=== PATIENT | male | born 1995 | race Caucasian/White ===

== ENCOUNTER 2019-12-24 17:23 | Emergency (ER) | payer OTHER ==
[2019-12-24 17:32] VITALS: BP 151/71
--- NOTE | 2019-12-24 17:42 | ED Physician Documentation ---
History of Present Illness - Stated complaint Stated Complaint: RT LOWER LEG NUMBNESS - Chief complaint Chief Complaint: Ext Problem - History obtained from History obtained from: Patient - History of Present Illness Timing: How many days ago (5) Pain level max: 5 Pain level now: 3 - Additonal information Additional information: 24-year-old male is in the [employer] and states that he has been sitting on the floor, against a wall, on a concrete floor for the past 5 days, noted numbness and tingling to the right leg since then. Has now having difficulty walking secondary to numbness. Took Motrin without relief. No loss of bowel or bladder control. Is having pain to the right lower back as well. No fall. No trauma. No fevers. No IV drug use. Review of Systems Ten Systems: 10 systems reviewed and negative Constitutional: denies: Fever, Chills Throat: denies: Sore throat Cardiac: denies: Chest pain / pressure Respiratory: denies: Cough GI: denies: Abdominal Pain, Nausea, Vomiting, Diarrhea Skin: denies: Rash Musculoskeletal: denies: Neck pain, Back pain Neurologic: denies: Headache PD PAST MEDICAL HISTORY - Past Medical History Past Medical History: No - Past Surgical History Past Surgical History: No - Present Medications Home Medications: Ambulatory Orders Medication Instructions Recorded Confirmed Ibuprofen [Motrin] 800 mg PO Q8H PRN #30 tablet 12/24/19 Methylprednisolone [Medrol] 4 mg PO DAILY #1 tab.ds.pk 12/24/19 - Allergies Allergies/Adverse Reactions: Allergies Allergy/AdvReac Type Severity Reaction Status Date / Time No Known Drug Allergies Allergy Verified 12/24/19 17:26 - Living Situation Living Situation: reports: With family Living Arrangement: reports: At home - Social History Does the pt smoke?: No Does the pt drink ETOH?: No Does the pt have substance abuse?: No - Family History Family history: reports: Non contributory PD ED PE NORMAL - Vitals Vital signs reviewed: Yes - General General: Alert and oriented X 3, No acute distress - HEENT HEENT: Moist mucous membranes - Neck Neck: Supple, no meningeal sign, No bony TTP - Cardiac Cardiac: RRR - Respiratory Respiratory: No respiratory distress, Clear bilaterally - Abdomen Abdomen: Soft, Non tender, Non distended - Back Back: No spinal TTP (No midline tenderness to palpation or percussion. Tender to palpation over the right SI joint.), Other (Normal bilateral lower extremity patellar and ankle jerk reflexes. Normal great toe extension bilaterally. no saddle anesthesia) - Extremities Extremities: Other (Decreased sensation over the foot and lower leg. Decreased ability to plantar and dorsiflex the foot. 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 We will trial him on a steroid taper. We will have him follow-up with his doctor for further care. Patient is well-appearing, nontoxic. Afebrile. No evidence of epidural abscess, fracture, cauda equina. Patient counseled regarding signs and symptoms for which I believe and urgent re-evaluation would be necessary. Patient with good understanding of and agreement to plan and is comfortable going home at this time This document was made in part using voice recognition software. While efforts are made to proofread this document, sound alike and grammatical errors may occur. MRI is not available here tonight, if he fails to improve as expected, would consider MRI. Departure - Departure Disposition: 01 Home, Self Care Clinical Impression: Foot drop, right foot Sciatica Qualifiers: Laterality: right Qualified Code(s): M54.31 - Sciatica, right side Condition: Good Instructions: ED Sciatica Follow-Up: MITRA IVORY MD [Primary Care Provider] - Within 3 Days Prescriptions: Methylprednisolone [Medrol] 4 mg PO DAILY #1 tab.ds.pk Ibuprofen [Motrin] 800 mg PO Q8H PRN #30 tablet PRN Reason: PAIN &/OR FEVER Comments: This is likely due to compression on your sciatic nerve, this should improve as the swelling decreases, you may need physical therapy and an MRI. This can be ordered by your doctor. Return if you worsen. Return for any loss of bowel or bladder control.
[2019-12-24] MEDS ORDERED: DEXAMETHASONE 10 MG/ML VIAL PO STA (18:02)
[2019-12-24] MEDS ORDERED: KETOROLAC 60 MG/2 ML VIAL IM STA (18:02)
== END 2019-12-24 18:25 | disposition home or self-care (01) ==
LOC: ED 17:23
DX: M54.31 Sciatica, right side (principal); M21.371 Foot drop, right foot; X50.1XXA Overexertion from prolonged static or awkward postures, initial encounter; Y93.89 Activity, other specified; Y92.139 Unspecified place military base as the place of occurrence of the external cause; Y99.1 Military activity
CPT/HCPCS: 96372; 99283; 99284

== ENCOUNTER 2020-02-11 15:41 | Outpatient (CLI) | payer OTHER ==
--- NOTE | 2020-02-13 10:07 | MRI Report ---
PROCEDURE: Ankle RT W/O INDICATIONS: FOOT DROP, RIGHT FOOT TECHNIQUE: Noncontrast sagittal T1 spin echo and T2 fast spin echo with fat saturation, axial proton density fas t spin echo and T2 fast spin echo with fat saturation, coronal T1 spin echo and T2 fast spin echo wit h fat saturation through the ankle/hindfoot. COMPARISON: None. FINDINGS: Image quality: Excellent. Bones and joints: No bone marrow contusions or fractures. No hindfoot coalitions. No osteochondral injuries of the talar dome. No pathologic joint effusions. Medial structures: The posterior tibialis, flexor digitorum longus, and flexor hallucis longus tendo ns are intact. The posterior tibial neurovascular bundle appears normal within the tarsal tunnel, wi thout extrinsic mass effect. The deltoid and spring ligaments appear intact. Lateral structures: The anterior talofibular, calcaneofibular, and posterior talofibular ligaments a ppear intact. More superiorly, the anterior and posterior tibiofibular ligaments appear normal, as i s the intermalleolar ligament. The tibiofibular syndesmosis is normal in width at 2 mm or less. The peroneus longus and brevis tendons demonstrate normal location and morphology. Adjacent bony perone al tubercle and retrotrochlear prominence are normal in size. The sinus tarsi demonstrates normal fa tty signal, without edema, fibrosis, or cyst formation. Anterior structures: The tibialis anterior, extensor hallucis longus, and extensor digitorum longus tendons appear intact. The dorsal talonavicular ligament appears intact. Posterior and plantar structures: Achilles tendon is intact. Medial and lateral bands of the planta r fascia are of normal thickness. No abductor digiti quinti muscle atrophy to suggest Finch neuropa thy. IMPRESSION: 1. No definite acute internal derangement. 2. No muscle edema or fatty atrophy to suggest denervation changes by imaging. Reviewed by: Ovi Perez MD on 02/13/2020 9:06 AM [facility] Approved by: Ovi Perez MD on 02/13/2020 9:06 AM [facility] Station ID: [id number]
== END 2020-02-11 15:42 | disposition home or self-care (01) ==
LOC: DI 15:41
DX: M21.371 Foot drop, right foot (principal)

== ENCOUNTER 2020-02-17 08:25 | Outpatient (CLI) | payer OTHER ==
--- NOTE | 2020-02-17 10:25 | MRI Report ---
PROCEDURE: Knee RT W/O INDICATIONS: RIGHT FOOT DROP TECHNIQUE: Noncontrast sagittal PD fast spin echo and T2 fast spin echo with fat saturation, sagittal 3-D spoile d GE with fat saturation; coronal T1 spin echo and PD fast spin echo with fat saturation, and axial P D fast spin echo with fat saturation through the knee. COMPARISON: None. FINDINGS: Image quality: Excellent. Menisci: The medial and lateral menisci are intact. There is no meniscal extrusion. Cruciate ligaments: The anterior and posterior cruciate ligaments appear intact. Medial structures: The medial collateral ligament appears intact. The semimembranosus tendon insert ions appear intact. Visualized portions of the pes anserinus tendons appear normal. Lateral structures: The lateral collateral ligament, long and short heads of the biceps femoris tend on appear intact. The popliteus tendon appears intact. Iliotibial band appears normal. Anterior structures: The quadriceps and patellar tendons appear intact. Patellar alignment is garett l. No femoral trochlear dysplasia or ventral trochlear prominence. No edema in the infrapatellar fa t pad. Bones and cartilage: No bone marrow contusion or acute fracture. The cartilage of the medial and la teral femorotibial compartments appears normal in thickness. Deep cartilage fissuring is seen in the lateral facet of the patella with focal subchondral cystic changes. Joint space and soft tissues: There is a physiologic amount of joint fluid. There is a trace medial popliteal cyst. The included portion of the common peroneal nerve appears normal without definite co mpression at the level of the fibular head. IMPRESSION: 1. No acute trabecular bone injury. The cruciate and collateral ligaments are intact. There is no me niscal tear. 2. No mass or compression is seen along the course of the common peroneal nerve. 3. Focal deep cartilage fissuring in the lateral facet of the patella with subchondral cystic change s. Reviewed by: Silviano Forman MD on 02/17/2020 10:23 AM PDT Approved by: Silviano Forman MD on 02/17/2020 10:23 AM PDT Station ID: [id number]
--- NOTE | 2020-02-17 10:34 | MRI Report ---
PROCEDURE: Hip RT W/O INDICATIONS: RIGHT FOOT DROP TECHNIQUE: Noncontrast coronal T1 spin echo and STIR through the bony pelvis. Coronal and axial T2 fast spin ec ho with fat saturation, sagittal T1 spin echo, and oblique axial T2 fast spin echo with fat saturatio n through the hip. COMPARISON: None. FINDINGS: Image quality: Excellent. Bones and joints: Bone marrow of the pelvic ring and proximal femurs show normal signal throughout. No intraosseous lesions or fractures. No avascular necrosis of the femoral heads. The visualized l ower lumbar spine appears normally aligned. Tendons: The gluteus medius and minimus tendons appear intact, without associated muscle atrophy. T he iliopsoas tendon appears intact, without adjacent bursal fluid collections. The origin of the ham string tendon is intact at the ischial tuberosity. Labrum and cartilage: The acetabular labrum appears intact in the absence of intra-articular contras t. Cartilage surface of the femoral head appears of normal thickness. The alpha angle of the femur is within normal limits at less than 55 degrees. Soft tissues: Visualized muscles demonstrate normal bulk and internal signal. The piriformis muscle s are symmetric. The proximal sciatic neurovascular bundle appears normal adjacent to the hamstring t endons. No free pelvic fluid. Bladder wall thickness is normal. Genitourinary structures and bowel loops appear normal where visualized. IMPRESSION: 1. No acute trabecular bone injury. The right hip articular cartilage and labrum appear normal. 2. No mass or compressive lesion is seen along the included portion of the proximal sacral nerve. Reviewed by: Silviano Forman MD on 02/17/2020 10:32 AM PDT Approved by: Silviano Forman MD on 02/17/2020 10:32 AM PDT Station ID: [id number]
== END 2020-02-17 08:26 | disposition home or self-care (01) ==
LOC: DI 08:25
DX: M21.371 Foot drop, right foot (principal); R93.6 Abnormal findings on diagnostic imaging of limbs

== ENCOUNTER 2022-05-29 00:53 | Outpatient (CLI) | payer OTHER | END 2022-05-29 00:54 | disposition critical access hospital (66) | LOC: EMS 00:53 | DX: R06.02 Shortness of breath (principal); R55 Syncope and collapse; R07.9 Chest pain, unspecified; M54.9 Dorsalgia, unspecified; R07.81 Pleurodynia; R51.9 Headache, unspecified | CPT/HCPCS: A0425; A0429 ==

== ENCOUNTER 2022-05-29 01:06 | Emergency (ER) | payer OTHER ==
[2022-05-29 01:25] LABS: BASOPHILS % (AUTO) 0.2 %; EOSINOPHILS # (AUTO) 0.2 10^3/uL (0.0-0.7); EOSINOPHILS % (AUTO) 1.4 %; HCT - HEMATOCRIT 45.2 % (42.0-52.0); HGB - HEMOGLOBIN 15.1 g/dL (14.0-18.0); LYMPHOCYTES % (AUTO) 24.9 %; MEAN CORPUSCULAR HEMOGLOBIN 28.9 pg (27.0-31.0); MEAN CORPUSCULAR HGB CONC 33.4 g/dL (32.0-36.0); MEAN CORPUSCULAR VOLUME 86.4 fL (80.0-94.0); MEAN PLATELET VOLUME 8.7 fL (7.4-11.4); MONOCYTES # (AUTO) 0.9 10^3/uL (0.0-1.0); MONOCYTES % (AUTO) 7.4 %; NEUTROPHILS % (AUTO) 65.9 %; PLT - PLATELET COUNT 300 10^3/uL (130-450); RED BLOOD COUNT 5.23 10^6/uL (4.70-6.10); RED CELL DISTRIBUTION WIDTH 11.9 % (12.0-15.0); WHITE BLOOD COUNT 12.2 x10^3/uL (4.8-10.8)
[2022-05-29] MEDS ORDERED: ASPIRIN 325 MG TABLET PO STA (01:29)
--- NOTE | 2022-05-29 01:29 | ED Physician Documentation ---
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 patient was sleeping in bed and woke, sitting up suddenly with sensation of chest tightness and inability to take a full breath. he became lightheaded and rolled out of bed, hitting his head in the process. patient notes he has had chest pain radiating to the upper back since yesterday morning throughout the day. currently 07/18. denies cough, fever, nausea, fnd. Review of Systems Constitutional: denies: Fever Cardiac: reports: Chest pain / pressure, Palpitations Respiratory: reports: Dyspnea. denies: Cough Neurologic: reports: Syncope PD PAST MEDICAL HISTORY - Past Medical History Past Medical History: No - Past Surgical History Past Surgical History: No - Present Medications Home Medications: Ambulatory Orders Medication Instructions Recorded Confirmed No Known Home Medications 05/29/22 05/29/22 - Allergies Allergies/Adverse Reactions: Allergies Allergy/AdvReac Type Severity Reaction Status Date / Time No Known Drug Allergies Allergy Verified 05/29/22 01:15 - Social History Does the pt smoke?: No Smoking Status: Never smoker Does the pt drink ETOH?: No Does the pt have substance abuse?: No - Immunizations Immunizations are current?: Yes - POLST Patient has POLST: No PD ED PE NORMAL - Vitals Vital signs reviewed: Yes - General General: Alert and oriented X 3, No acute distress, Well developed/nourished - HEENT HEENT: Atraumatic, PERRL, EOMI - Neck Neck: Supple, no meningeal sign - Cardiac Cardiac: RRR - Respiratory Respiratory: No respiratory distress, Clear bilaterally - Abdomen Abdomen: Non tender, Non distended - Derm Derm: Normal color, Warm and dry - Neuro Neuro: Alert and oriented X 3, 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, No motor deficit, No sensory deficit Eye Opening: Spontaneous Motor: Obeys Commands Verbal: Oriented GCS Score: 15 - Psych Psych: Normal mood, Normal affect Results - Vitals Vitals: Vital Signs - 24 hr 05/29/22 05/29/22 01:05 01:17 Temperature 36.3 C L Heart Rate 83 74 Respiratory 22 15 Rate Blood Pressure 149/90 H 149/90 H O2 Saturation 100 100 Oxygen O2 Source Room air - EKG (time done) 0111 Rate: Rate (enter#) (78) Rhythm: NSR, Other (one PVC) [place]: Normal Intervals: Normal RI QRS: Normal Ischemia: Normal ST segments - Labs Labs: Laboratory Tests 05/29/22 05/29/22 05/29/22 01:17 01:17 01:17 WBC 12.2 H RBC 5.23 Hgb 15.1 Hct 45.2 MCV 86.4 MCH 28.9 MCHC 33.4 RDW 11.9 L Plt Count 300 MPV 8.7 Neut # (Auto) 8.0 H Lymph # (Auto) 3.0 [place] # (Auto) 0.9 Eos # (Auto) 0.2 Baso # (Auto) 0.0 Absolute Nucleated RBC 0.00 Nucleated RBC % 0.0 D-Dimer < 200.0 L Sodium 137 Potassium 4.0 Chloride 101 Carbon Dioxide 25 Anion Gap 11.0 BUN 18 Creatinine 1.1 Estimated GFR (MDRD) 80 L Glucose 122 H Calcium 9.6 Total Bilirubin 0.5 AST 22 ALT 51 Alkaline Phosphatase 68 Troponin I High Sens Total Protein 7.8 Albumin 4.0 Globulin 3.8 Albumin/Globulin Ratio 1.1 Lipase 39 05/29/22 01:17 WBC RBC Hgb Hct MCV MCH MCHC RDW Plt Count MPV Neut # (Auto) Lymph # (Auto) [place] # (Auto) Eos # (Auto) Baso # (Auto) Absolute Nucleated RBC Nucleated RBC % D-Dimer Sodium Potassium Chloride Carbon Dioxide Anion Gap BUN Creatinine Estimated GFR (MDRD) Glucose Calcium Total Bilirubin AST ALT Alkaline Phosphatase Troponin I High Sens 3.2 Total Protein Albumin Globulin Albumin/Globulin Ratio Lipase PD Medical Decision Making - ED course ED course: 26-year-old man presents with pain to the upper back and possible syncopal episode. benign exam. 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 Lab work including CBC, abdominal panel, troponin were unremarkable. D-dimer was obtained to rule out pulmonary embolism and aortic dissection. This was negative. Chest x-ray was interpreted independently by myself and in outside radiologist clear of cardiopulmonary disease. EKG was normal sinus rhythm with normal intervals and 1 PVC. I discussed with the patient that he will need to follow-up with his primary care provider for echocardiogram and further testing. [place] Return precautions given Departure - Departure Disposition: 01 Home, Self Care Clinical Impression: Syncope, Chest pain, Back pain Condition: Good Instructions: ED Fainting Unkn Cause Comments: You were seen in the emergency department for chest pain moving to the back and a fainting episode. You had lab work done including CBC, abdominal panel, troponin and all was normal. Your EKG showed 1 PVC (Premature ventricular contraction) but was otherwise normal. Your chest x-ray was normal. [place] and possible further testing. Return to the emergency department if you have any new or worsening symptoms or other concerns.
[2022-05-29 01:41] LABS: ALBUMIN/GLOBULIN RATIO 1.1 (1.0-2.2); BILIRUBIN,TOTAL 0.5 mg/dL (0.2-1.0); CALCIUM 9.6 mg/dL (8.5-10.3); CREATININE 1.1 mg/dL (0.6-1.2); TOTAL PROTEIN 7.8 g/dL (6.7-8.2)
--- NOTE | 2022-05-29 01:46 | XRAY Report ---
PROCEDURE: Chest 1 View X-Ray INDICATIONS: Chest Pain TECHNIQUE: One view of the chest was acquired. COMPARISON: None. FINDINGS: Surgical changes and devices: None. Lungs and pleura: No pleural effusions or pneumothorax. Lungs are clear. Mediastinum: Mediastinal contours appear normal. Heart size is normal. Bones and chest wall: No suspicious bony lesions. Overlying soft tissues appear unremarkable. IMPRESSION: 1. No acute cardiopulmonary disease. Reviewed by: Ovi Kimbrough MD on 05/29/2022 1:55 AM [facility] Approved by: Ovi Kimbrough MD on 05/29/2022 1:55 AM [facility] Station ID: [id number]
[2022-05-29 03:00] VITALS: BP 145/87
== END 2022-05-29 02:57 | disposition home or self-care (01) ==
LOC: EDUNIT# → ED 01:06
DX: R55 Syncope and collapse (principal); R07.9 Chest pain, unspecified; M54.9 Dorsalgia, unspecified
CPT/HCPCS: 36415; 71045; 80053; 83690; 84484; 85025; 85379; 93005; 99284; A9270

== ENCOUNTER 2022-06-24 07:43 | Outpatient (CLI) | payer OTHER ==
--- NOTE | 2022-06-24 08:37 | CARDIAC PROCEDURE NOTE ---
Stress Test Report Service Date: 06/24/22 Service Time: 08:00 Ordering Provider: Luther Ochoa MD Indication for Test: Evaluate recent episodes of chest discomfort and a single, brief occurrence of syncope. 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 He reports having what initially appeared to be musculoskeletal "pinching" pain in his chest, side and back, that was increased with breathing and waxed and waned for a few hours. He went to sleep but awoke in the middle of the night with recurrence of this discomfort, which made it difficult for him to take a deep breath. He sat up in bed, became lightheaded and briefly syncopal, falling out of bed and hitting his head in the process (without traumatic injury). However he rapidly came to and his symptoms of discomfort gradually dissipated. He was evaluated at the [facility] Emergency Department, with an EKG that was notable for scattered nonspecific T wave abnormalities and a single PVC. D-dimer and high-sensitivity troponin levels were normal. He relates that he has had mild rare chest discomfort episodes of this nature in the past, without prior lightheadedness/syncope, and he has had no recurrence of symptoms since the episode that prompted ED evaluation on 05/29/2022. He has been doing light duty at work but remains active, exercising nearly every day to a high level without any concerning symptoms. Cardiac Risk Factors: Family history includes paternal grandfather with onset of CAD in his early 50s and a paternal uncle with hypertension, but Osvaldo is unaware of any persistent blood pressure elevation in the past, history of diabetes, history of hyperlipidemia or cigarette smoking ever. Type of Stress Test: ETT with Echocardiography Procedure: -Exercise Treadmill Test- After signing informed consent, the patient underwent resting Echo imaging and then performed treadmill exercise using a Jeffery protocol. The patient exercised for 9 minutes 50 seconds and achieved a peak heart rate of 188 (97 percent predi cted maximum heart rate for age), and an estimated workload of 11.5 METS. The test was terminated due to fatigue/shortness of breath at a heart rate above target. Resting heart rate: 62 Peak heart rate: 188 Normal response to exercise. Resting BP: 130/75 Peak BP: 248/72 Mildly exaggerated increase in systolic BP and normal mild decrease in diastolic BP in response to exercise. Rhythm during exercise: Sinus rhythm throughout. Symptoms: No occurrence of chest discomfort or lightheadedness. EKG at rest showed normal sinus rhythm with left atrial abnormality and scattered inversion of, or biphasic, T waves. EKG at peak stress showed horizontal to downsloping ST depression of 4.5-5.0 mm, meeting EKG diagnostic criteria for ischemia. In Recovery heart rate rapidly decreased towards baseline, with final recorded BP of 174/67 at 4:00. Echo imaging was performed at rest and with stress and a separate report generated. I, Lamonte Naik MD, was present throughout this treadmill stress study and supervised it in its entirety. Summary: 1) Probably average exercise tolerance for age as evidenced by attainment of target heart rate without any symptoms, though formal SUDEEP was abnormal at 29.8%. 2) Abnormal resting EKG. 3) Adequate level of exercise was achieved on this treadmill stress test. 4) Normal to possibly exaggerated systolic BP response to exercise. 5) ST depression meeting diagnostic EKG criteria for ischemia was seen at peak stress. 6) Formal Echo analysis indicates normal resting LV function (without evidence of LVH, valvular abnormality or increase in estimated RV/PA systolic pressure) with appropriate hyperdynamic augmentation of all segments with exercise; thus no evidence of stress-associated ischemia. CONCLUSIONS: 1) Normal baseline LV systolic function with normal hyperdynamic augmentation of all segments with exercise. 2) Average exercise capacity without any symptoms concerning for inducible ischemia. 3) Systolic blood pressure was slightly elevated (143-152) while patient was waiting to start the exercise protocol and there was a possibly exaggerated response of systolic pressure to exercise; these BP findings along with nonspecific T wave abnormalities and stress-associated ST depression could be manifestations of "pre-hypertension". 4) Patient is advised to follow-up with a fasting cholesterol panel, to make sure that he does not need treatment for hyperlipidemia, and to monitor blood pressure periodically, to ensure that he is not developing hypertension. 5) In view of the above findings formal evaluation by Cardiology could be considered discretionary.
== END 2022-06-24 07:44 | disposition home or self-care (01) ==
LOC: DI 07:43
PROVIDERS: ATTEND General Practice
DX: R07.9 Chest pain, unspecified (principal); I51.7 Cardiomegaly; Z82.49 Family history of ischemic heart disease and other diseases of the circulatory system
CPT/HCPCS: 93350